=== PATIENT | male | born 1945 | race Caucasian/White ===

== ENCOUNTER 2022-06-03 15:31 | Inpatient (IN) | payer OTHER, BC ==
[2022-06-03 17:20] VITALS: BMI 25.8
[2022-06-03 18:38] LABS: VENOUS BASE EXCESS 2.5 mmol/L (-2-2); VENOUS O2 SATURATION 72.2 % (70-80); VENOUS PCO2 43.6 mmHg (38-52); VENOUS PH 7.417 (7.310-7.410)
[2022-06-03 18:40] LABS: BASO % 1.2 % (0-2.0); HEMATOCRIT 37.3 % (35.4-49); HEMOGLOBIN 12.4 GM/dL (11.7-16.9); LYMPH % 16.1 % (8-40); MCH 29.6 pg (25.7-33.7); MCHC 33.3 g/dl (32.0-35.9); MEAN CELL VOLUME 88.9 fl (80-96); MEAN PLT VOLUME 9.2 fl (7.5-11.1); MONO % 8.9 % (3.8-10.2); NEUT % 68.8 % (42.8-82.8); PLATELET COUNT 174 10^3/uL (134-434); RDW 15.1 % (11.9-15.9); WHITE BLOOD COUNT 10.4 K/mm3 (4.0-10.0)
[2022-06-03 18:49] LABS: INR 1.11 (0.83-1.09); PROTHROMBIN TIME (PATIENT) 12.8 SEC (9.7-13.0)
[2022-06-03 19:09] LABS: ALBUMIN 3.1 g/dl (3.4-5.0); BLOOD UREA NITROGEN 13.7 mg/dL (7-18); CALCIUM 8.5 mg/dL (8.5-10.1); MAGNESIUM 1.9 mg/dL (1.8-2.4)
[2022-06-03 19:12] LABS: CREATININE 0.9 mg/dL (0.55-1.3)
[2022-06-03 19:14] LABS: BILIRUBIN,TOTAL 0.4 mg/dL (0.2-1); TOT PROT 7.8 g/dl (6.4-8.2)
[2022-06-03] MEDS ORDERED: ACETAMINOPHEN 325 MG TABLET (FP) PO PRN (23:24)
[2022-06-03] MEDS ORDERED: levETIRAcetam 500 MG/5 ML INJECTION VIAL IVPB ONE ×2 (23:28→23:49)
[2022-06-04 00:32] LABS: EPI CELLS >36 /uL (0-25.1); HYALINE CASTS 5 /uL (0-3.1); URINE APPEARANCE CLOUDY; URINE BACTERIA 30 /uL (0-1359); URINE BILIRUBIN NEGATIVE (NEGATIVE); URINE COLOR RED; URINE GLUCOSE (UA) NEGATIVE (NEGATIVE); URINE KETONE NEGATIVE (NEGATIVE); URINE LEUK ESTERASE 1+ (NEGATIVE); URINE NITRITE NEGATIVE (NEGATIVE); URINE PROTEIN 2+ (NEGATIVE); URINE RBC 11698 /uL (0-23.9); URINE UROBILINOGEN 0.2 mg/dL (0.2-1.0); URINE WBC 230 /uL (0-25.8)
[2022-06-04] MEDS ORDERED: SENNOSIDES 8.6MG TABLET (FP) PO PRN (03:20)
[2022-06-04] MEDS: DEXTROSE 5%-NORMAL SALINE 1,000 ML IV SCH (04:30)
[2022-06-04 06:53] LABS: BASO % 1.1 % (0-2.0); EOS % 4.8 % (0-4.5); HEMOGLOBIN 11.8 GM/dL (11.7-16.9); LYMPH % 13.4 % (8-40); MCH 28.9 pg (25.7-33.7); MCHC 32.8 g/dl (32.0-35.9); MEAN CELL VOLUME 88.2 fl (80-96); MEAN PLT VOLUME 9.4 fl (7.5-11.1); MONO % 10.4 % (3.8-10.2); NEUT % 70.3 % (42.8-82.8); PLATELET COUNT 170 10^3/uL (134-434); RBC 4.08 M/mm3 (4.00-5.60); RDW 15.1 % (11.9-15.9); WHITE BLOOD COUNT 8.8 K/mm3 (4.0-10.0)
[2022-06-04 07:07] LABS: CALCIUM 8.1 mg/dL (8.5-10.1)
[2022-06-04 07:08] LABS: BLOOD UREA NITROGEN 15.1 mg/dL (7-18); MAGNESIUM 1.8 mg/dL (1.8-2.4)
[2022-06-04] MEDS: D5-1/2NS+20 MEQ KCL - 20 MEQ/1,000 ML INFUS.BAG IV SCH (09:10)
[2022-06-04] MEDS ORDERED: ESCITALOPRAM OXALATE 10 MG TABLET ONE (09:52)
[2022-06-04] MEDS: LIDOCAINE 5% TOPICAL PATCH TP SCH (09:57)
[2022-06-04] MEDS: levETIRAcetam 500 MG TABLET (FP) PO SCH ×2 (09:59→22:38)
[2022-06-04] MEDS: ESCITALOPRAM OXALATE 20 MG TABLET PO SCH (09:59)
[2022-06-04] MEDS: ASPIRIN 81 MG CHEWABLE TABLETS PO SCH (09:59)
[2022-06-04] MEDS: CEFTRIAXONE 1 GM in DEXTROSE 5%-WATER - 50 ML IVPB SCH (09:59)
[2022-06-04] MEDS ORDERED: ENOXAPARIN NA (PORCINE) 40 MG/0.4 ML DISP.SYRIN SQ SCH (10:00)
[2022-06-04] MEDS: ATORVASTATIN CA 40 MG TABLET (FP) PO SCH (22:39)
[2022-06-04] MEDS: APIXABAN 5 MG TABLET PO SCH (22:39)
[2022-06-04] MEDS: LIDOCAINE PATCH REMOVAL MC SCH (22:39)
[2022-06-05] MEDS ORDERED: VANCOMYCIN/WATER FOR INJ (PEG) 1,000 MG/200 ML BAG IVPB ONE ×2 (02:00→09:40)
[2022-06-05] MEDS: DEXTROSE 5%-NORMAL SALINE 1,000 ML IV SCH (07:21)
[2022-06-05] MEDS ORDERED: ESCITALOPRAM OXALATE 10 MG TABLET ONE (10:10)
[2022-06-05] MEDS: levETIRAcetam 500 MG TABLET (FP) PO SCH ×2 (10:13→21:40)
[2022-06-05] MEDS: ASPIRIN 81 MG CHEWABLE TABLETS PO SCH (10:13)
[2022-06-05] MEDS: D5-1/2NS+20 MEQ KCL - 20 MEQ/1,000 ML INFUS.BAG IV SCH (10:13)
[2022-06-05] MEDS: ESCITALOPRAM OXALATE 20 MG TABLET PO SCH (10:14)
[2022-06-05] MEDS: LIDOCAINE 5% TOPICAL PATCH TP SCH (10:14)
[2022-06-05] MEDS: APIXABAN 5 MG TABLET PO SCH ×2 (10:14→21:40)
[2022-06-05] MEDS: CEFTRIAXONE 1 GM in DEXTROSE 5%-WATER - 50 ML IVPB SCH (10:15)
[2022-06-05] MEDS: ATORVASTATIN CA 40 MG TABLET (FP) PO SCH (21:40)
[2022-06-05] MEDS: LIDOCAINE PATCH REMOVAL MC SCH (21:41)
[2022-06-06] MEDS: D5-1/2NS+20 MEQ KCL - 20 MEQ/1,000 ML INFUS.BAG IV SCH ×2 (03:57→21:44)
[2022-06-06 07:37] LABS: ALBUMIN 2.6 g/dl (3.4-5.0); BLOOD UREA NITROGEN 11.2 mg/dL (7-18); MAGNESIUM 1.8 mg/dL (1.8-2.4)
[2022-06-06 07:42] LABS: BILIRUBIN,TOTAL 0.6 mg/dL (0.2-1); TOT PROT 6.6 g/dl (6.4-8.2)
[2022-06-06 07:47] LABS: HEMATOCRIT 34.8 % (35.4-49); HEMOGLOBIN 11.2 GM/dL (11.7-16.9); MCH 28.7 pg (25.7-33.7); MCHC 32.2 g/dl (32.0-35.9); MEAN CELL VOLUME 89.2 fl (80-96); MEAN PLT VOLUME 9.4 fl (7.5-11.1); PLATELET COUNT 170 10^3/uL (134-434); RBC 3.91 M/mm3 (4.00-5.60); RDW 15.6 % (11.9-15.9); WHITE BLOOD COUNT 5.9 K/mm3 (4.0-10.0)
[2022-06-06] MEDS ORDERED: ESCITALOPRAM OXALATE 10 MG TABLET ONE (09:24)
[2022-06-06] MEDS: levETIRAcetam 500 MG TABLET (FP) PO SCH ×2 (09:27→21:44)
[2022-06-06] MEDS: APIXABAN 5 MG TABLET PO SCH ×2 (09:27→21:44)
[2022-06-06] MEDS: CEFTRIAXONE 1 GM in DEXTROSE 5%-WATER - 50 ML IVPB SCH (09:27)
[2022-06-06] MEDS: LIDOCAINE 5% TOPICAL PATCH TP SCH (09:27)
[2022-06-06] MEDS: ESCITALOPRAM OXALATE 20 MG TABLET PO SCH (09:27)
[2022-06-06] MEDS: ASPIRIN 81 MG CHEWABLE TABLETS PO SCH (09:27)
[2022-06-06] MEDS: ATORVASTATIN CA 40 MG TABLET (FP) PO SCH (21:44)
[2022-06-06] MEDS: LIDOCAINE PATCH REMOVAL MC SCH (21:45)
[2022-06-07] MEDS: D5-1/2NS+20 MEQ KCL - 20 MEQ/1,000 ML INFUS.BAG IV SCH ×2 (09:45→22:19)
[2022-06-07] MEDS ORDERED: ESCITALOPRAM OXALATE 10 MG TABLET ONE (09:48)
[2022-06-07] MEDS: LIDOCAINE 5% TOPICAL PATCH TP SCH (09:51)
[2022-06-07] MEDS: ASPIRIN 81 MG CHEWABLE TABLETS PO SCH (09:51)
[2022-06-07] MEDS: ESCITALOPRAM OXALATE 20 MG TABLET PO SCH (09:51)
[2022-06-07] MEDS: APIXABAN 5 MG TABLET PO SCH ×2 (09:51→21:34)
[2022-06-07] MEDS: CEFTRIAXONE 1 GM in DEXTROSE 5%-WATER - 50 ML IVPB SCH (09:51)
[2022-06-07] MEDS: levETIRAcetam 500 MG TABLET (FP) PO SCH ×2 (09:51→21:34)
[2022-06-07] MEDS: LIDOCAINE PATCH REMOVAL MC SCH (21:33)
[2022-06-07] MEDS: ATORVASTATIN CA 40 MG TABLET (FP) PO SCH (21:34)
[2022-06-07 22:19] VITALS: RESP 19
[2022-06-08 08:52] VITALS: BP 138/67; PULSE 60; TEMP 97.5
[2022-06-08] MEDS ORDERED: ESCITALOPRAM OXALATE 10 MG TABLET ONE (09:51)
[2022-06-08] MEDS: LIDOCAINE 5% TOPICAL PATCH TP SCH (10:00)
[2022-06-08] MEDS: ASPIRIN 81 MG CHEWABLE TABLETS PO SCH (10:00)
[2022-06-08] MEDS: APIXABAN 5 MG TABLET PO SCH (10:00)
[2022-06-08] MEDS: CEFTRIAXONE 1 GM in DEXTROSE 5%-WATER - 50 ML IVPB SCH (10:00)
[2022-06-08] MEDS: levETIRAcetam 500 MG TABLET (FP) PO SCH (10:00)
[2022-06-08] MEDS: ESCITALOPRAM OXALATE 20 MG TABLET PO SCH (10:00)
== END 2022-06-08 11:38 | DRG 193 ==
LOC: JER 15:31 → JERBED 16:00 → J4S 06-04 04:15
PROVIDERS: ADMIT Internal Medicine; ATTEND Family Medicine
DX: J18.9 Pneumonia, unspecified organism (principal); G92.8 Other toxic encephalopathy; N39.0 Urinary tract infection, site not specified; I69.354 Hemiplegia and hemiparesis following cerebral infarction affecting left non-dominant side; I48.91 Unspecified atrial fibrillation; I25.10 Atherosclerotic heart disease of native coronary artery without angina pectoris; I10 Essential (primary) hypertension; E78.5 Hyperlipidemia, unspecified
CPT/HCPCS: 0241U-QW; 36415; 70450-TC; 71045-TC-FY; 71250-TC; 80048; 80053; 81003; 82550; 82803; 82962; 83605; 83735; 84484; 85025; 85027; 85610; 85730; 86850; 86900; 86901; 87040; 87086; 87899; 93005; 93010; 93306-TC; 99285-25